=== PATIENT | female | born 1980 | race Hispanic/Latino ===

== ENCOUNTER 2017-04-22 18:06 | Emergency (ER) | payer OTHER, SELFPAY | END 2017-04-22 20:03 | disposition home or self-care (01) | LOC: ERS 18:06 | DX: S16.1XXA Strain of muscle, fascia and tendon at neck level, initial encounter (principal); X50.9XXA Other and unspecified overexertion or strenuous movements or postures, initial encounter | CPT/HCPCS: 99283 ==

== ENCOUNTER 2017-11-21 14:17 | Outpatient (CLI) | payer OTHER ==
[2017-11-21 15:24] LABS: Hemoglobin 13.3 g/dL (12.0-16.0); Mean Corpuscular HGB CONC 34.2 g/dL (32.0-36.0); Mean Corpuscular Hemoglobin 33.1 pg (27.0-31.0); Mean Corpuscular Volume 96.7 fl (81.0-99.0); Mean Platelet Volume 6.5 fL (7.4-10.4); Platelet Count 354 thou/uL (130-400); RBC Distribution Width 10.8 % (11.5-14.5); Red Blood Cell (RBC) Count 4.03 mill/uL (4.20-5.40); White Blood Cell (WBC) Count 7.6 thou/uL (4.8-10.8)
[2017-11-21 15:33] LABS: BHCG - Serum Negative (NEGATIVE); Pregs Control Background? CLEAR/WHITE (CLR/WHITE); Pregs Control Bar Appear? YES (CONTROL BAR)
== END 2017-11-21 14:18 | disposition home or self-care (01) ==
LOC: LABBT 14:17
PROVIDERS: ATTEND Obstetrics & Gynecology
DX: Z01.812 Encounter for preprocedural laboratory examination (principal); N83.202 Unspecified ovarian cyst, left side
CPT/HCPCS: 84703; 85027; 86850; 86900; 86901

== ENCOUNTER 2017-11-26 07:33 | Day surgery (SDC) | payer OTHER ==
[2017-11-21 14:49] VITALS: BMI 23.5
--- NOTE | 2017-11-25 22:45 | HP ---
DATE OF PLANNED PROCEDURE: 11/26/2017 PREOPERATIVE DIAGNOSES: 1. Left ovarian cyst. 2. Pelvic pain, desiring removal of Essure device from fallopian tubes. HISTORY OF PRESENT ILLNESS: Ashlyn Workman is a 37-year-old, G6, P3, with a history of Essure place ment in 2013 and a left ovarian cyst approximately 7 x 5 cm suspicious for a dermoid cyst noted on traund in 08/2017. The patient has a long history of pelvic pain. She reports it is bilateral and that began in 2013 after Essure device placement. She presents requesting salpingectomy for removal of Essure devices at the time of as well as a left ovarian cystectomy versus left salpingo-oophorect aleah. PAST MEDICAL HISTORY: None. PAST SURGICAL HISTORY: LEEP procedure, dilation and curettage, Essure. CURRENT MEDICATIONS: None. OBSTETRICAL HISTORY: G6, P3-0-3-3. GYNECOLOGIC HISTORY: Most recent Pap smear negative for intraepithelial lesion or malignancy with po sitive high-risk HPV noted. History of HSV. SOCIAL HISTORY: No alcohol, tobacco or drug use. She is single. ALLERGIES: No known drug allergies. FAMILY HISTORY: Significant for heart disease, elevated cholesterol and diabetes in her mother, othe rwise negative. REVIEW OF SYSTEMS: Negative except as stated per HPI. PHYSICAL EXAMINATION: VITAL SIGNS: Blood pressure 117/72, weight 154 pounds, BMI 24.9. GENERAL: No acute distress, alert and oriented. HEENT: Grossly normal. BREAST: Normal. CARDIOVASCULAR: Regular rate and rhythm. LUNGS: Clear to auscultation bilaterally. ABDOMEN: Soft, nontender. No palpable masses on abdominal exam. PELVIC: Normal external female genitalia, normal vaginal mucosa, no cervical lesions, no cervical mo tion tenderness. Mild tenderness in the left adnexa at the midline. No rebound or guarding. MUSCULOSKELETAL: Grossly normal. PSYCHIATRIC: Appropriate affect. DIAGNOSTIC STUDIES: Ultrasound, uterus 7 x 5 cm, endometrium of 11 mm. Right ovary 2.9 x 1.7 cm lef t adnexal mass suspicious for dermoid 6.97 x 4.9 cm. No free fluid. Essure coil seen. ASSESSMENT AND PLAN: Ms. Ashlyn Workman is a 37-year-old, -0-3-3 with a previous history of pe rmanent sterilization with a large left ovarian cyst and pelvic pain. The patient is scheduled to un dergo a left ovarian cystectomy with possible left ovarian salpingo-oophorectomy as well as contralat eral salpingectomy for pelvic pain and present for the Essure devices. The patient understands the r isk and benefits of the procedure. She understands the risks are to include, but not limited to blee ding, infection, damage to intraabdominal organs, inability to fully diagnose and treat all condition s at the time of surgery, and possible need for future medical and/or surgical management. The patie nt's questions have been answered to her satisfaction, and she desires to proceed with the procedure as listed above.
[2017-11-26] MEDS ORDERED: Gabapentin 300 MG CAP ONE (07:54)
[2017-11-26] MEDS ORDERED: Famotidine/PF 20 mg/2ml Vial ONE (07:54)
[2017-11-26] MEDS ORDERED: CeleCOXIB 100 MG CAP ONE (07:55)
[2017-11-26] MEDS ORDERED: CEFAZOLIN/Water 2 GM/20 ML SYRINGE ONE (07:55)
[2017-11-26] MEDS ORDERED: Midazolam HCl 2 mg/2 ml Vial ONE ×2 (09:43→10:02)
[2017-11-26] MEDS ORDERED: Ondansetron HCl/PF 4 MG/2 ML Vial ONE ×2 (09:43→13:24)
[2017-11-26] MEDS ORDERED: Fentanyl 250 MCG/5 ML VIAL ONE (09:43)
[2017-11-26] MEDS ORDERED: Bupivacaine HCl 0.5%/Epinephrine 1:200,000/PF 30 ml Vial ONE (09:51)
[2017-11-26] MEDS ORDERED: HYDROmorphone 2 MG/ML VIAL SLOW IVP PRN (12:08)
[2017-11-26] MEDS ORDERED: Promethazine HCl 25 MG/ML VIAL IM PRN (12:08)
[2017-11-26] MEDS ORDERED: Ondansetron HCl/PF 4 MG/2 ML Vial IVP PRN (12:08)
[2017-11-26] MEDS ORDERED: Promethazine HCl 25 MG/ML VIAL SLOW IVP PRN (12:08)
--- NOTE | 2017-11-26 12:57 | OP ---
DATE OF PROCEDURE: 11/26/2017 PREOPERATIVE DIAGNOSES: 1. Left adnexal mass suspicious for dermoid approximately 7-8 cm. 2. History of Essure device placement with patient desiring removal. 3. Pelvic pain. POSTOPERATIVE DIAGNOSES: 1. Left adnexal mass suspicious for dermoid approximately 7-8 cm. 2. History of Essure device placement with patient desiring removal. 3. Pelvic pain. PROCEDURE PERFORMED: Robotic-assisted single site left salpingo-oophorectomy and right salpingectomy . SURGEON: Jair Burciaga D.O. BRAIDED BAND ASSEMBLER: Radha Vuong M.D. ANESTHESIA: GETA. COMPLICATIONS: None. ESTIMATED BLOOD LOSS: 50 mL. URINE OUTPUT: 125 mL. OPERATIVE FINDINGS: 1. Uterus enlarged to 10 cm. 2. A 7-8 cm left ovarian cyst consistent with dermoid. 3. Bilateral Essure devices visualized and removed from the fallopian tubes bilaterally. 4. Surgical site is hemostatic. DESCRIPTION OF PROCEDURE: The patient was taken back to the OR with IV fluids running. Once she was in the OR, she was placed in dorsal supine position. Anesthesia was then obtained. Once the patien t was asleep, she was placed in dorsal lithotomy position with her arms tucked at her side. The vagi na and abdomen were then prepped and draped in normal fashion for gynecologic laparoscopy. Surgeons were scrubbed in. A Hernandez catheter was placed into the bladder and set to gravity to drain. An oper ative speculum was placed into the vagina. The anterior lip of the cervix was grasped and the uterus sounded to approximately 10 cm. A [place]ka clamp was then placed through the cervix into the endometri al canal for uterine manipulation if needed during the case. The single tooth tenaculum was removed as well as the operative speculum. Surgeon's gloves were changed and attention was turned to laparos copic portion of the case. Anesthesia was placed below the skin of the umbilicus and an approximate 2.5-3 cm skin incision was made along the umbilical fold. Hemostats were used to dissect the subcuta neous tissue down towards the fascia. Once the fascia was reached, a Veress needle was placed throug h the incision into the peritoneum. The peritoneum was insufflated without difficulty. Next, 11 mm optic trocar was placed through this incision. A laparoscope was then placed through the trocar with the above findings noted. The laparoscope was then removed and the edges of the fascia was extended along the length of the trocar approximately 2.5-3 cm in total length. Once the fascia was extended , the size of the skin incision, the instruments were removed and a mini GelPOINT retractor was place d into this incision. After it was placed, the abdominal wall was inspected with no bowel, omentum o r other anatomy noted trapped within the retractor. The GelPOINT had previously been assembled with the trocars needed to complete the surgery, a camera trocar, an bookkeeper assistant trocar and 2 robotic arm tr ocars. This was assembled on top of the GelPOINT retractor and the abdomen was insufflated without d ifficulty. Next, the robotic arms and camera were docked at the patient's bedside and through their ports, the instruments entered into the surgical field under direct visualization. Beginning on the patient's left side, the left fallopian tube and ovary were inspected with the above findings noted. The left IP ligament was cauterized with bipolar fenestrated grasper and incised with a monopolar ho ok. Once the IP ligament had been transected and the ovary was freed from the pelvic side wall, the utero-ovarian ligament was cauterized and incised in similar fashion. The fallopian tube and ovary w ere then divided away from the mesosalpinx with a series of bipolar cautery and monopolar hook. Once the cornu of the uterus, the junction of the cornua and the fallopian tube were reached. The fallop pao tube was transected. A small segment of the Essure coil was noted at the cornua. This was retra cted under direct visualization and removed. It was also removed out of the surgical field with the left tube and ovary completely transected from the adnexa and uterus and the Essure coil device remov ed from the patient's left side and good hemostasis noted. Attention was then turned to the right si de. The right fallopian tube was elevated away from the ovary and uterus. A salpingectomy was perfo rmed using a series of bipolar cautery and scissors to dissect the fallopian tube away from the mesos alpinx. Once the junction of the fallopian tube and cornua were reached, the Essure coil was finally dissected out of the proximal end of the fallopian tube. Hemostasis at the uterine cornu was achiev ed with bipolar cautery. Next day, 15 cm bag was placed through the GelPOINT under direct visualizat ion into the surgical field. The ovarian and tube specimen were placed into this bag and the bag was cinched up. The surgical sites bilaterally as well as uterus were copiously irrigated and suctioned dry with no bleeding noted. The instruments were removed from the GelPOINT and the trocars were rem tre as well. The robotic arms were undocked. Next, the specimen bag was brought up through the Gel POINT retractor. The cyst was ruptured contained inside the bag and suctioned down. With the cyst d ecompressed, the entire specimen was able to easily be removed through the umbilical incision. Once this was completed, the GelPOINT mini retractor was removed. The subcutaneous tissue and skin incisio n were inspected with no bleeding noted. The fascia was then closed to this incision with Vicryl sut ure. The skin was reapproximated with 4-0 Monocryl and dressed with Dermabond dressing. A pressure dressing was applied over the umbilicus. The patient then had the Hulka clamp removed. The vagina a nd cervix were inspected with no bleeding noted. The patient was cleaned, dried, extubated and taken to the recovery room in good condition.
[2017-11-26] MEDS ORDERED: PROPOFOL 200 MG/20 ML VIAL ONE (13:24)
[2017-11-26] MEDS ORDERED: PHENYLEPHRINE-NS 100 MCG/ML 10 ML SYRINGE ONE (13:24)
[2017-11-26] MEDS ORDERED: Dexamethasone 20 MG/5 ML VIAL ONE (13:24)
[2017-11-26] MEDS ORDERED: Lidocaine 1% PF 5 ML VIAL ONE (13:24)
[2017-11-26] MEDS ORDERED: Glycopyrrolate 0.2 MG/ML 5 ML SYRINGE ONE (13:24)
[2017-11-26] MEDS ORDERED: HYDROcodone/Acetaminophen 5/325 mg Tablet ONE (14:49)
== END 2017-11-26 15:33 | disposition home or self-care (01) ==
LOC: SDC 07:33
PROVIDERS: ATTEND Obstetrics & Gynecology
PROC: 0UT74ZZ Resection of Bilateral Fallopian Tubes, Percutaneous Endoscopic Approach (ICD-10-PCS; principal; 2017-11-26)
PROC: 0UT04ZZ Resection of Right Ovary, Percutaneous Endoscopic Approach (ICD-10-PCS; principal; 2017-11-26)
DX: D27.1 Benign neoplasm of left ovary (principal); Z98.51 Tubal ligation status; Z98.890 Other specified postprocedural states
CPT/HCPCS: 88307; C1788; J0670; J1100; J2001; J2250; J2405; J2704; J3010; S0028

== ENCOUNTER 2017-12-06 12:09 | Emergency (ER) | payer OTHER, SELFPAY ==
[2017-12-06] MEDS ORDERED: cefTRIAXone\\ROCEPHIN 250 MG VIAL ONE (12:19)
[2017-12-06] MEDS ORDERED: Lidocaine 1% PF 5 ML VIAL ONE (12:19)
[2017-12-06] MEDS ORDERED: Azithromycin 250 MG TAB ONE (12:24)
[2017-12-09 02:04] LABS: Chlamydia by PCR Not Detected (NotDetected); GC by PCR Not Detected (NotDetected)
== END 2017-12-06 13:00 | disposition home or self-care (01) ==
LOC: ERS 12:09
DX: Z20.2 Contact with and (suspected) exposure to infections with a predominantly sexual mode of transmission (principal)
CPT/HCPCS: 87491; 87591; 96372; J0696; J2001

== ENCOUNTER 2018-04-21 10:21 | Outpatient (CLI) | payer MEDICAID ==
[2018-04-24] MEDS ORDERED: ISOVUE-370 76%-LOCM 1 ML ONE (09:36)
--- NOTE | 2018-04-24 17:22 | CT ---
CT OF THE ABDOMEN 04/24/18 COMPARISON: CT of abdomen and pelvis 01/20/17. HISTORY: Evaluate umbilical hernia. TECHNIQUE: Serial axial CT imaging at 5 mm intervals from the lung bases through the mid sacrum with IV and oral contrast. Coronal and sagittal reformatted imaging obtained. FINDINGS: Pelvis is not imaged on this examination. The imaged lung bases appear grossly unremarkable. The liver, gallbladder, spleen, pancreas, adrenal glands, and kidneys appear unremarkable. The imaged bowel demonstrates an abnormal appearance of the distal two thirds of the appendix. The appendix is dilated, fluid filled and demonstrates mucosal enhancement. The appendix measures up to approximately 1.1 cm in greatest transverse dimension. There is a fat containing umbilical hernia just to the right of midline which has enlarged significan tly since the prior examination, now measuring at least 4 cm AP dimension and 4.6 cm transverse dimen rg. There is a retroaortic left renal vein. Imaged abdomen demonstrates no lymphadenopathy. There is prominent dural ectasia with scalloping of the posterior aspect of the L2, L3, L4, L5 and S1 vertebral levels, as seen on the prior examination. No worrisome lytic or blastic bone lesion identified. IMPRESSION: 1. Abnormally dilated and fluid filled appendix with mucosal enhancement. Primary concern is for acute appendicitis. This could be related to mucocele formation. Surgical consultation is advised. 2. Extensive dural ectasia involving the lower lumbar spine and upper sacrum, a stable finding. This suggests dural ectasia. This can be seen with Marfan's syndrome, neurofibromatosis type I, Ehler s-Danlos syndrome, etc. 3. Results called to Dr. Gracia at 3 p.m., 04/24/18. Code CR POS: [id number]
== END 2018-04-21 10:22 | disposition home or self-care (01) ==
LOC: BICCT 10:21
PROVIDERS: ATTEND Obstetrics & Gynecology
DX: K42.9 Umbilical hernia without obstruction or gangrene (principal); K38.8 Other specified diseases of appendix; M53.86 Other specified dorsopathies, lumbar region; M53.3 Sacrococcygeal disorders, not elsewhere classified
CPT/HCPCS: 74160

== ENCOUNTER 2018-05-06 12:45 | Outpatient (CLI) | payer OTHER ==
[2018-05-06 13:45] LABS: #Basophils 0.1 thou/uL (0.0-0.2); #Eosinphils 0.1 thou/uL (0.0-0.7); #Lymphocytes 2.1 thou/uL (1.20-3.40); #Monocytes 0.5 thou/uL (0.11-0.59); #Neutrophils 3.9 thou/uL (1.40-6.50); %Basophils 0.8 % (0.0-1.0); %Eosinophils 1.8 % (0.0-10.0); %Lymphocytes 31.4 % (21.0-51.0); %Monocytes 7.5 % (0.0-10.0); %Neutrophils 58.5 % (42.0-75.0); Hemoglobin 13.8 g/dL (12.0-16.0); Mean Corpuscular HGB CONC 33.1 g/dL (32.0-36.0); Mean Corpuscular Hemoglobin 32.6 pg (27.0-31.0); Mean Corpuscular Volume 98.3 fL (78.0-98.0); Mean Platelet Volume 6.9 fL (7.4-10.4); Platelet Count 342 thou/uL (130-400); RBC Distribution Width 11.3 % (11.5-14.5); Red Blood Cell (RBC) Count 4.25 mill/uL (4.20-5.40); White Blood Cell (WBC) Count 6.6 thou/uL (4.8-10.8)
[2018-05-06 14:17] LABS: Anion Gap 11 mmol/L (10-20); BUN (Urea Nitrogen) 13 mg/dL (7.0-18.7); Calc. Creatinine Clearance 0 mL/min (70-130); Calcium 9.3 mg/dL (7.8-10.44); Carbon Dioxide 26 mmol/L (22-29); Chloride 105 mmol/L (98-107); Estimated GFR-MDRD 84; Glucose 101 mg/dL (70-105); Sodium 138 mmol/L (136-145)
== END 2018-05-06 12:46 | disposition home or self-care (01) ==
LOC: LABBT 12:45
PROVIDERS: ATTEND Surgery
DX: Z01.812 Encounter for preprocedural laboratory examination (principal); K43.2 Incisional hernia without obstruction or gangrene
CPT/HCPCS: 80048; 85025

== ENCOUNTER 2018-05-12 13:51 | Day surgery (SDC) | payer OTHER ==
[2018-05-06 13:04] VITALS: BMI 22.7
[2018-05-12] MEDS ORDERED: Bupivacaine/Epinephrine 0.25% 30 ML VIAL ONE (14:34)
[2018-05-12] MEDS ORDERED: CEFAZOLIN 2 GM/50 ML BAG ONE (14:39)
[2018-05-12] MEDS ORDERED: Ondansetron PF 4 MG/2 ML Vial ONE (15:09)
[2018-05-12] MEDS ORDERED: Ketorolac Tromethamine 30 MG/ML VIAL ONE (15:09)
[2018-05-12] MEDS ORDERED: PROPOFOL 200 MG/20 ML VIAL ONE (15:09)
[2018-05-12] MEDS ORDERED: Dexamethasone 20 MG/5 ML VIAL ONE (15:09)
[2018-05-12] MEDS ORDERED: Lidocaine 1% PF 5 ML VIAL ONE (15:09)
[2018-05-12] MEDS ORDERED: Glycopyrrolate 0.2 MG/ML 5 ML SYRINGE ONE (15:09)
[2018-05-12] MEDS ORDERED: Fentanyl 100 MCG/2 ML VIAL ONE ×3 (15:17→17:42)
[2018-05-12] MEDS ORDERED: Promethazine HCl 25 MG/ML VIAL ONE (17:42)
[2018-05-12] MEDS ORDERED: Meperidine HCl/PF 25 MG/ML VIAL SLOW IVP PRN (18:02)
[2018-05-12] MEDS ORDERED: Promethazine HCl 25 MG/ML VIAL IM/IV PRN (18:02)
[2018-05-12] MEDS ORDERED: Non-Formulary Medication 1 EACH PO PRN (18:02)
[2018-05-12] MEDS ORDERED: Ondansetron HCl/PF 4 MG/2 ML Vial IVP PRN (18:02)
[2018-05-12] MEDS ORDERED: HYDROcodone/Acetaminophen 5/325 mg Tablet ONE (18:42)
--- NOTE | 2018-05-13 15:07 | OP ---
DATE OF PROCEDURE: 05/12/2018 PREOPERATIVE DIAGNOSIS: Incisional hernia. POSTOPERATIVE DIAGNOSIS: Incisional hernia. PROCEDURE PERFORMED: Da Rubén laparoscopic incisional hernia repair with mesh. Ventralex ST 8 cm [place]. ANESTHESIA: General. ESTIMATED BLOOD LOSS: Minimal. COMPLICATIONS: None. SPECIMEN: None. TECHNIQUE: The patient was taken to the operating room and laid supine on the operating room table after general anesthetic was obtained. Hernandez catheter was placed. The abdomen was prepped and draped in a sterile fashion. Left subcostal 5 mm Optiview trocar was placed in usual fashion without injury and high-flow pneumoperitoneum was obtained. The hernia was found to be above the umbilicus, too close to the subxiphoid space. Decision was made to place the ports lower. 11 mm port was placed suprapubic and an 8 mm robot assist on each side. The robot was brought in from the top down and a side dock was performed. Surgeon goes to the console. All adhesions were taken down from the posterior abdominal wall revealing the 4 to 5 cm defect. The defect was closed using #1 V-Loc running. This completely closed the defect. 4 x [address] mesh was brought in a sterile field. It was cut to an 8 cm [place], rolled and placed in the abdominal cavity. The exposed mesh portion was placed up against the posterior abdominal wall. The nonadherent underlay was placed on the undersurface. The mesh was held to the posterior abdominal wall using the needle from the V-Loc. 2-0 V-Loc was used to sew the mesh to the posterior fascia circumferentially all the way around. All needles were removed from the abdomen. There were good coverage and good closure of the defect. All port sites were infiltrated using local anesthetic. All ports were removed under camera visualization. Pneumoperitoneum was let down. 4-0 Monocryl and Dermabond was used to close all skin incisions. The patient was sent to Recovery in stable condition. All instrument counts, needle counts, and lap counts were correct. Job ID: [id number]
== END 2018-05-12 20:00 | disposition home or self-care (01) ==
LOC: SDC 13:51
PROVIDERS: ATTEND Surgery
PROC: 0WUF4JZ Supplement Abdominal Wall with Synthetic Substitute, Percutaneous Endoscopic Approach (ICD-10-PCS; principal; 2018-05-12)
PROC: 8E0W4CZ Robotic Assisted Procedure of Trunk Region, Percutaneous Endoscopic Approach (ICD-10-PCS; principal; 2018-05-12)
DX: K43.2 Incisional hernia without obstruction or gangrene (principal); K66.0 Peritoneal adhesions (postprocedural) (postinfection)
CPT/HCPCS: 96374; J0131; J1100; J1885; J2001; J2405; J2550; J2704; J3010

== ENCOUNTER 2020-07-06 20:05 | Emergency (ER) | payer OTHER, SELFPAY ==
[2020-07-07 01:34] LABS: SARS-CoV-2 MS2 Positive; SARS-CoV-2 N Gene Positive; SARS-CoV-2 S Gene Positive; SARS-CoV-2 by NAA DETECTED (NotDetected); SARS-CoV-2 orf1ab Positive
== END 2020-07-06 21:57 | disposition home or self-care (01) ==
LOC: ERS 20:05
DX: U07.1 COVID-19 (principal)
CPT/HCPCS: 87635; 87804; 99283; U0003

== ENCOUNTER 2023-06-01 12:44 | Emergency (ER) | payer OTHER, SELFPAY ==
[2023-06-01] MEDS ORDERED: Acetaminophen 500 MG TAB ONE (13:34)
[2023-06-01 15:04] LABS: SARS-CoV-2 NAA Rapid Test Not Detected (NotDetected)
== END 2023-06-01 15:30 | disposition home or self-care (01) ==
LOC: ERS 12:44
DX: J06.9 Acute upper respiratory infection, unspecified (principal); Z20.822 Contact with and (suspected) exposure to COVID-19
CPT/HCPCS: 99283

== ENCOUNTER 2025-03-13 14:02 | Emergency (ER) | payer BC ==
[2025-03-13] MEDS ORDERED: Ketorolac Tromethamine 30 MG (1 mL) VIAL ONE (15:15)
[2025-03-13] MEDS ORDERED: Dexamethasone 10 MG/ML VIAL ONE (15:15)
== END 2025-03-13 15:26 | disposition home or self-care (01) ==
LOC: ERS 14:02
DX: J02.9 Acute pharyngitis, unspecified (principal)
CPT/HCPCS: 87081; 87426; 87430; 96372; J1100; J1885